=== PATIENT | female | born 1935 | race Caucasian/White ===

== ENCOUNTER 2016-09-11 11:39 | Outpatient (CLI) | payer MEDICARE, OTHER ==
--- NOTE | 2016-09-11 14:20 | XRAY Report ---
THREE-VIEW LUMBAR SPINE: 09/11/2016 CLINICAL INDICATION: Pain. FINDINGS: AP, lateral, coned-down views of the lumbar spine demonstrate extensive degenerative disk disease, with disk space narrowing worst at L2-3. There is no evidence of fracture. The bowel gas p attern appears unremarkable. IMPRESSION: EXTENSIVE DEGENERATIVE DISK DISEASE. NO EVIDENCE OF COMPRESSION FRACTURE. JOB #: [id number] EXT JOB #:[id number]
--- NOTE | 2016-09-11 14:20 | XRAY Report ---
TWO VIEW BILATERAL HIPS AND PELVIS: 09/11/2016 CLINICAL INDICATION: Pain. FINDINGS: Frontal view of the hips and pelvis and bilateral frogleg lateral views of the hips demons trate mild bilateral hip osteoarthritis. There is no evidence of acute fracture or dislocation. The s acroiliac joints appear unremarkable. IMPRESSION: MILD BILATERAL HIP OSTEOARTHRITIS. JOB #: [id number] EXT JOB #:[id number]
== END 2016-09-11 11:40 | disposition home or self-care (01) ==
LOC: DI 11:39
PROVIDERS: ATTEND Physician Assistant
DX: M16.0 Bilateral primary osteoarthritis of hip (principal); M51.36 Other intervertebral disc degeneration, lumbar region
CPT/HCPCS: 72100; 73521

== ENCOUNTER 2016-09-25 13:12 | Outpatient (CLI) | payer MEDICARE, OTHER ==
--- NOTE | 2016-09-26 09:03 | DEXA Report ---
DEXA SCAN: 09/25/2016 CLINICAL INDICATION: Postmenopausal. TECHNIQUE: Dual energy x-ray absorptiometry (DXA) was performed on a [employer] system. Regions measured are the AP spine, femoral neck, and, if needed, forearm. COMPARISON: 09/12/2015. In accordance with the International Society for Clinical Densitometry (ISCD) guidelines, data from previous exams may be reanalyzed using current recommendations and techniques. This is done to allow a more accurate basis for comparison with the current study. FINDINGS: The data for the lumbar spine is as follows: REGION BMD (g/cm/cm) T-SCORE Z-SCORE L1 0.920 -1.7 0.2 L2 1.317 1.0 2.9 L3 1.402 1.7 3.6 L4 1.128 -0.6 1.4 TOTAL 1.185 0.0 2.0 NOTE: All evaluable vertebrae are used for classification. The data for the hip is as follows: REGION BMD (g/cm/cm) T-SCORE Z-SCORE Neck 0.743 -2.1 0.1 TOTAL 0.763 -1.9 0.1 NOTE: The femoral neck or total proximal femur, whichever is lowest, is used for classification. DXA RESULTS SUMMARY: Spine SCAN DATE AGE BMD T-SCORE BMD CHANGE VS BASELINE BMD CHANGE VS PREVIOUS 09/25/2016 81 1[age]185 --- -0.006 -0.5 09/12/2015 80 1.191 --- --- --- * Denotes significant change at the 95% confidence level. Denotes dissimilar scan types or analysis methods. DXA RESULTS SUMMARY: Total hip SCAN DATE AGE BMD T-SCORE BMD CHANGE VS BASELINE BMD CHANGE VS PREVIOUS 09/25/2016 81 0.763 --- 0.021 2.8 09/12/2015 80 0.742 --- --- --- * Denotes significant change at the 95% confidence level. Denotes dissimilar scan types or analysis methods. IMPRESSION: 1. THE WHO CLASSIFICATION BASED ON THE INTERNATIONAL REFERENCE STANDARD IS OSTEOPENIA. THE FRACTURE RISK IS INCREASED. 2. THERE HAS BEEN NO STATISTICALLY SIGNIFICANT INTERVAL CHANGE IN BONE MINERAL DENSITY OF THE LEFT HIP TOTAL OR LUMBAR SPINE FROM 09/12/2015. RECOMMENDATION: Patients with diagnosis of osteoporosis or osteopenia should have regular bone mineral density assessment. For those eligible for Medicare, routine testing is allowed once every 2 years. Testing frequency can be increased for patients who have rapidly progressing disease or for those who are receiving medical therapy to restore bone mass. COMMENT: World Health Organization (WHO) definitions for osteoporosis and osteopenia: NORMAL BMD: T-score at -1.0 or higher, fracture risk is low. OSTEOPENIA BMD: T-score between -1.0 and -2.5, fracture risk is increased. OSTEOPOROSIS BMD: T-score at -2.5 or lower, fracture risk high. National Osteoporosis Foundation recommends: 1. Obtain adequate dietary calcium (at least 1200 mg per day) and vitamin D (400 -800 international units per day). 2. Participate, as appropriate, in regular weightbearing and muscle- strengthening exercise. 3. Avoid tobacco use and reduce alcohol and caffeine intake. 4. For more detailed information see the website at www.NOF.org. MTDD
== END 2016-09-25 13:13 | disposition home or self-care (01) ==
LOC: DI 13:12
PROVIDERS: ATTEND Physician Assistant
DX: Z13.820 Encounter for screening for osteoporosis (principal); M81.0 Age-related osteoporosis without current pathological fracture
CPT/HCPCS: 77080

== ENCOUNTER 2018-01-12 11:46 | Outpatient (CLI) | payer MEDICARE, OTHER ==
[2018-01-12] MEDS ORDERED: IOVERSOL 320 100 ML VIAL IVP ONE ×2 (11:55→12:23)
--- NOTE | 2018-01-13 17:19 | CT Report ---
Reason: LOCALIZED ENLARGED LYMPH NODES Procedure Date: 01/12/2018 Accession Number: [id number] / [id number] Procedure: CT - Neck Soft Tissue W/ CPT Code: FULL RESULT: CT SOFT TISSUE NECK WITH CONTRAST EXAM DATE: 01/12/2018. INDICATION: 82-year-old female. Localized enlarged lymph nodes, submandibular. TECHNIQUE: 80 cc of Isovue 370 contrast were injected intravenously. The neck was scanned helically and data was reconstructed into 2 mm axial images. In addition, sagittal and coronal reformations have been generated. In accordance with CT protocol optimization, one or more of the following dose reduction techniques were utilized for this exam: automated exposure control, adjustment of mA and/or KV based on patient size, or use of iterative reconstructive technique. COMPARISON: None. FINDINGS: No obvious radiopaque marker is identified, localizing the area of clinical concern. The submandibular glands have a normal appearance. No mass lesion is identified in either submandibular gland. In addition, there is no evidence of active sialadenitis. No radiopaque calculi are seen within either gland or in the duct for either gland. A few very small, benign-appearing lymph nodes are seen in both submandibular spaces. No pathologically enlarged lymph nodes are demonstrated and no abnormal cystic or solid mass lesion is seen. The parotid glands are partially obscured due to beam-hardening artifact from metal dental hardware. Grossly no pathology is demonstrated. The nasopharyngeal and oropharyngeal soft tissue contours appear symmetric. The oral tongue is obscured due to fairly extensive beam-hardening artifact from metal dental hardware. No tongue base mass is demonstrated. The larynx and hypopharynx are unremarkable. The imaged trachea appears widely patent. No thyromegaly. A few tiny hypodensities are seen in the right lobe of the thyroid, almost certainly representing benign change (i.e., small adenomas or colloid cysts). No dominant thyroid mass lesion is demonstrated. The carotid and vertebral arteries appear patent. Both internal jugular veins are patent. No lymph nodes meeting the size criterion for malignancy are identified in the neck and no necrotic lymph nodes are seen. The largest lymph node is in the left level IIA robbin station (image 77 of series #3). It has a normal reniform configuration and it measures about 1 x 0.[address] images. This is well within normal limits for a jugulodigastric lymph node. No focal mass/nodule is identified in the imaged upper lungs. There is relatively symmetric scarring at the pulmonary apices bilaterally. Degenerative changes are demonstrated in the cervical spine. Regional bony structures are otherwise unremarkable. No lytic or destructive bone lesion is identified. Middle ear cavities and mastoid air cells appear clear. The paranasal sinuses appear clear. No mass is identified in either orbit. No obvious acute pathology is seen in the imaged brain. IMPRESSION: Unremarkable soft tissue neck CT. In particular, no pathologic lymphadenopathy is demonstrated.
== END 2018-01-12 11:47 | disposition home or self-care (01) ==
LOC: DI 11:46
PROVIDERS: ATTEND Physician Assistant
DX: R59.0 Localized enlarged lymph nodes (principal)
CPT/HCPCS: 70491; Q9967

== ENCOUNTER 2019-04-08 07:59 | Outpatient (CLI) | payer MEDICARE, OTHER ==
--- NOTE | 2019-04-08 09:16 | Ultrasound Report ---
Reason: RUQ PAIN Procedure Date: 04/08/2019 Accession Number: [id number] / [id number] Procedure: US - Abdomen Limited CPT Code: Final Report FULL RESULT: EXAM: ABDOMEN ULTRASOUND LIMITED, RUQ EXAM DATE: 04/08/2019 08:32 AM. CLINICAL HISTORY: Right upper quadrant pain. COMPARISON: None. TECHNIQUE: Real-time scanning was performed with static images obtained. FINDINGS: Liver: Echotexture is mildly coarsened with increased parenchymal echogenicity and subtle nodularity of surface contour suggested on curved probe. Linear transducer for focused evaluation of liver surface was not utilized. Liver spans at least 13.4 cm. Increased echogenicity of parenchymal limits evaluation for hepatic masses, no mass is seen. Main portal vein flow: Hepatopetal. Gallbladder: Normal. No stones, wall thickening, or sonographic Mesa's sign. Biliary System: CBD measures 2 mm. No intrahepatic or extrahepatic ductal dilatation. Other: Limited visualization of the right kidney demonstrates no hydronephrosis or calculi, maximal sagittal dimension 9.8 cm. IMPRESSION: Increased parenchymal echogenicity of the liver which can be seen with disease such as steatosis. Question surface nodularity of liver, can be seen with cirrhosis. RADIA
== END 2019-04-08 08:00 | disposition home or self-care (01) ==
LOC: DI 07:59
PROVIDERS: ATTEND Physician Assistant
DX: R10.11 Right upper quadrant pain (principal)
CPT/HCPCS: 76705

== ENCOUNTER 2020-05-16 14:46 | Outpatient (CLI) | payer MEDICARE, OTHER ==
--- NOTE | 2020-05-17 12:06 | Mammography Report ---
BILATERAL DIGITAL SCREENING MAMMOGRAM 3D/2D WITH EXAGGERATED CC: 05/16/2020 CLINICAL: Family history of breast cancer. Comparison is made to exams dated: 08/23/2015 mammogram, 07/25/2014 mammogram, 09/04/2012 mammogram, 2011 mammogram, and 03/07/2010 mammogram - [facility]. The tissue of both breasts i s predominantly fatty. No significant masses, calcifications, or other findings are seen in either breast. There has been no significant interval change. IMPRESSION: NEGATIVE There is no mammographic evidence of malignancy. A 1 year screening mammogram is recommended. This exam was interpreted at Station ID: [id number]. NOTE: For mammograms, a report in lay terms will be sent to the patient. Approximately 15% of breast malignancies will not be visualized mammographically. In the management of a palpable breast mass, a negative mammogram must not discourage biopsy of a clinically suspicious lesion. Electronically Signed By: Vignesh Rosario acr/penrad:05/16/2020 16:10:43 ACR BI-RADS Category 1: Negative 3341F PARENCHYMAL PATTERN: (F) - The breast(s) demonstrate(s) diffuse fatty replacement. BI-RADS CATEGORY: (1) - 1 RECOMMENDATION: (ANNUAL) - Recommend routine annual screening mammography. [id number] 1 year screening LATERALITY: (B)
== END 2020-05-16 14:47 | disposition home or self-care (01) ==
LOC: DI.S 14:46
PROVIDERS: ATTEND Physician Assistant
DX: Z12.31 Encounter for screening mammogram for malignant neoplasm of breast (principal)

== ENCOUNTER 2020-10-03 10:13 | Outpatient (CLI) | payer MEDICARE, OTHER ==
[2020-10-03 11:05] LABS: BASOPHILS % (AUTO) 0.7 %; EOSINOPHILS # (AUTO) 0.1 10^3/uL (0.0-0.7); EOSINOPHILS % (AUTO) 1.8 %; HGB - HEMOGLOBIN 14.8 g/dL (12.0-16.0); LYMPHOCYTES # (AUTO) 1.2 10^3/uL (1.5-3.5); LYMPHOCYTES % (AUTO) 21.4 %; MEAN CORPUSCULAR HEMOGLOBIN 31.8 pg (27.0-31.0); MEAN CORPUSCULAR HGB CONC 34.4 g/dL (32.0-36.0); MEAN CORPUSCULAR VOLUME 92.3 fL (81.0-99.0); MEAN PLATELET VOLUME 9.4 fL (7.9-10.8); MONOCYTES # (AUTO) 0.5 10^3/uL (0.0-1.0); MONOCYTES % (AUTO) 9.5 %; NEUTROPHILS # (AUTO) 3.6 10^3/uL (1.5-6.6); NEUTROPHILS % (AUTO) 66.4 %; PLT - PLATELET COUNT 249 10^3/uL (130-450); RED BLOOD COUNT 4.66 10^6/uL (4.20-5.40); RED CELL DISTRIBUTION WIDTH 11.6 % (12.0-15.0); WHITE BLOOD COUNT 5.5 x10^3/uL (4.8-10.8)
[2020-10-03 11:22] LABS: ALBUMIN 4.4 g/dL (3.2-5.5); ALBUMIN/GLOBULIN RATIO 1.8 (1.0-2.2); BILIRUBIN,TOTAL 0.9 mg/dL (0.2-1.0); CALCIUM 9.5 mg/dL (8.5-10.3); TOTAL PROTEIN 6.9 g/dL (6.7-8.2)
== END 2020-10-03 10:14 | disposition home or self-care (01) ==
LOC: RT 10:13
PROVIDERS: ATTEND Nurse Practitioner Family
DX: R00.2 Palpitations (principal); R42 Dizziness and giddiness
CPT/HCPCS: 36415; 80053; 84443; 85025; 93005

== ENCOUNTER 2020-10-19 11:59 | Emergency (ER) | payer MEDICARE, OTHER | END 2020-10-19 12:10 | disposition left against medical advice (07) | LOC: ED 11:59 | DX: Z53.21 Procedure and treatment not carried out due to patient leaving prior to being seen by health care provider (principal) ==

== ENCOUNTER 2020-11-01 13:44 | Emergency (ER) | payer MEDICARE, OTHER ==
[2020-11-01 14:13] LABS: BASOPHILS % (AUTO) 0.6 %; EOSINOPHILS # (AUTO) 0.1 10^3/uL (0.0-0.7); EOSINOPHILS % (AUTO) 1.4 %; HCT - HEMATOCRIT 45.9 % (37.0-47.0); HGB - HEMOGLOBIN 15.7 g/dL (12.0-16.0); LYMPHOCYTES # (AUTO) 1.5 10^3/uL (1.5-3.5); LYMPHOCYTES % (AUTO) 22.3 %; MEAN CORPUSCULAR HEMOGLOBIN 31.2 pg (27.0-31.0); MEAN CORPUSCULAR HGB CONC 34.2 g/dL (32.0-36.0); MEAN CORPUSCULAR VOLUME 91.1 fL (81.0-99.0); MEAN PLATELET VOLUME 9.2 fL (7.9-10.8); MONOCYTES # (AUTO) 0.5 10^3/uL (0.0-1.0); MONOCYTES % (AUTO) 6.9 %; NEUTROPHILS # (AUTO) 4.5 10^3/uL (1.5-6.6); NEUTROPHILS % (AUTO) 68.6 %; PLT - PLATELET COUNT 299 10^3/uL (130-450); RED BLOOD COUNT 5.04 10^6/uL (4.20-5.40); RED CELL DISTRIBUTION WIDTH 11.5 % (12.0-15.0); WHITE BLOOD COUNT 6.5 x10^3/uL (4.8-10.8)
[2020-11-01 14:29] LABS: ALBUMIN 4.4 g/dL (3.2-5.5); BILIRUBIN,TOTAL 0.8 mg/dL (0.2-1.0); CALCIUM 9.7 mg/dL (8.5-10.3); POTASSIUM 3.9 mmol/L (3.5-5.0); TOTAL PROTEIN 7.5 g/dL (6.7-8.2)
[2020-11-01 14:30] LABS: ALBUMIN/GLOBULIN RATIO 1.4 (1.0-2.2)
--- NOTE | 2020-11-01 14:39 | XRAY Report ---
PROCEDURE: Chest 1 View X-Ray INDICATIONS: Chest Pain TECHNIQUE: One view of the chest was acquired. COMPARISON: None. FINDINGS: Surgical changes and devices: None. Lungs and pleura: No pleural effusions or pneumothorax. Lungs are clear. Mediastinum: Mediastinal contours appear normal. Heart size is normal. Bones and chest wall: No suspicious bony lesions. Overlying soft tissues appear unremarkable. IMPRESSION: No acute cardiopulmonary abnormality. Reviewed by: Shakeel Cruz MD on 11/01/2020 2:38 PM PDT Approved by: Shakeel Cruz MD on 11/01/2020 2:38 PM PDT Station ID: [id number]
--- NOTE | 2020-11-01 17:05 | ED Physician Documentation ---
PD HPI CHEST PAIN - Stated complaint Stated Complaint: CHEST TIGHTNESS - Chief complaint Chief Complaint: Cardiac - History obtained from History obtained from: Patient - History of Present Illness Timing - duration: Weeks Timing - details: Gradual onset Pain level max: 0 Pain level now: 0 Quality: No: Pressure, Tightness, Aching, Sharp, Tearing, Dull, Stabbing, Throbbing, Indigestion, Like prior ACS, Pain Radiation: No: Jaw, Neck, Back, Abdominal, Left upper extremity, Right upper extremity - Additional information Additional information: 85-year-old female presents to the emergency department complaint of intermittent palpitations for the past several weeks, worse today. She states she started new blood pressure medication but does not know what it is. Nothing seems to make it better or worse. No lightheadedness, dizziness, chest pain or near syncope. Review of Systems Constitutional: denies: Fever, Chills Ears: denies: Ear pain Nose: denies: Rhinorrhea / runny nose, Congestion Throat: denies: Sore throat Cardiac: reports: Palpitations. denies: Chest pain / pressure Respiratory: denies: Cough GI: denies: Nausea, Vomiting, Diarrhea Skin: denies: Rash PD PAST MEDICAL HISTORY - Past Medical History Past Medical History: Yes - Past Surgical History Past Surgical History: No - Present Medications Home Medications: Ambulatory Orders Medication Instructions Recorded Confirmed Terbinafine [Lamisil] 250 mg PO DAILY #14 tablet 07/31/19 cephALEXin [Keflex] 500 mg PO Q6H #28 capsule 07/31/19 - Allergies Allergies/Adverse Reactions: Allergies Allergy/AdvReac Type Severity Reaction Status Date / Time No Known Drug Allergies Allergy Verified 11/01/20 13:58 - Social History Does the pt smoke?: No Smoking Status: Never smoker Does the pt drink ETOH?: No Does the pt have substance abuse?: No - Immunizations Immunizations are current?: No - POLST Patient has POLST: No PD ED PE NORMAL - Vitals Vital signs reviewed: Yes - General General: Alert and oriented X 3, No acute distress, Well developed/nourished - HEENT HEENT: PERRL, Moist mucous membranes - Neck Neck: Supple, no meningeal sign - Cardiac Cardiac: Other (irregular) - Respiratory Respiratory: No respiratory distress, Clear bilaterally - Abdomen Abdomen: Soft, Non tender, Non distended - Derm Derm: Warm and dry - Extremities Extremities: No edema, No calf tenderness / cord - Neuro Neuro: Alert and oriented X 3 - Psych Psych: Normal mood, Normal affect Results - Vitals Vitals: Vital Signs - 24 hr 11/01/20 11/01/20 13:50 17:31 Temperature 36.5 C Heart Rate 70 63 Respiratory 18 15 Rate Blood Pressure 200/98 H 160/78 H O2 Saturation 97 96 Oxygen O2 Source Room air - EKG (time done) 1351 Rate: Rate (enter#) (66) Rhythm: NSR, Other (PVC) [place]: LAD Intervals: Normal MA QRS: Normal Ischemia: Normal ST segments - Labs Labs: Laboratory Tests 11/01/20 11/01/20 11/01/20 14:08 14:08 14:08 WBC 6.5 RBC 5.04 Hgb 15.7 Hct 45.9 MCV 91.1 MCH 31.2 H MCHC 34.2 RDW 11.5 L Plt Count 299 MPV 9.2 Neut # (Auto) 4.5 Lymph # (Auto) 1.5 [place] # (Auto) 0.5 Eos # (Auto) 0.1 Baso # (Auto) 0.0 Absolute Nucleated RBC 0.00 Nucleated RBC % 0.0 Sodium 136 Potassium 3.9 Chloride 96 L Carbon Dioxide 29 Anion Gap 11.0 BUN 18 Creatinine 1.0 Estimated GFR (MDRD) 53 L Glucose 131 H Calcium 9.7 Total Bilirubin 0.8 AST 26 ALT 22 Alkaline Phosphatase 74 Troponin I High Sens 6.2 Total Protein 7.5 Albumin 4.4 Globulin 3.1 Albumin/Globulin Ratio 1.4 Lipase 37 - Rads (name of study) cxr Radiology: Final report received, EMP read contemporaneously, See rad report (No acute abnormality) PD MEDICAL DECISION MAKING - ED course Complexity details: reviewed results, re-evaluated patient, considered differential, d/w patient ED course: Patient is an 85-year-old female who presents to the emergency department palpitations. She is found to have multiple PVCs and occasional bigeminy. We will have her continue her current medications at home and follow-up with her doctor. No acute laboratory findings, chest x-ray or EKG findings other than the bigeminy. Patient counseled regarding signs and symptoms for which I believe and urgent re-evaluation would be necessary. Patient with good understanding of and agreement to plan and is comfortable going home at this time This document was made in part using voice recognition software. While efforts are made to proofread this document, sound alike and grammatical errors may occur. Departure - Departure Disposition: 01 Home, Self Care Clinical Impression: Premature ventricular contraction Condition: Good Instructions: Premature Ventricular Contract About Follow-Up: your,doctor in 1 week [Other] Comments: You are having frequent PVCs. Please continue your current medications and follow-up with your clinical nutritionist for further care. Return if you worsen. There are no other acute laboratory or radiographic image findings that are abnormal today. Return if you worsen. Discharge Date/Time: 11/01/20 17:32
[2020-11-01 17:32] VITALS: BP 160/78
== END 2020-11-01 17:32 | disposition home or self-care (01) ==
LOC: ED 13:44
DX: I49.3 Ventricular premature depolarization (principal)
CPT/HCPCS: 36415; 80053; 83690; 84484; 85025; 93005; 99284

== ENCOUNTER 2020-11-27 13:55 | Emergency (ER) | payer MEDICARE, OTHER ==
[2020-11-27 14:06] VITALS: BP 161/90
--- NOTE | 2020-11-27 15:45 | ED Physician Documentation ---
PD HPI SKIN - Stated complaint Stated Complaint: PERINEAL CELLULITIS - Chief complaint Chief Complaint: Wound - History obtained from History obtained from: Patient - Additional information Additional information: 88yo female with dx cellulitis to inner thighs 11/17. Was on bactrim for it. Itchy but not painful. Tried epsom salt and hydrocortisone cream which were helpful. No vaginal drainage. new fabric softener and jeans. Review of Systems Constitutional: denies: Fever, Chills Nose: reports: Reviewed and negative Throat: reports: Reviewed and negative Cardiac: reports: Reviewed and negative PD PAST MEDICAL HISTORY - Past Surgical History Past Surgical History: No - Present Medications Home Medications: Ambulatory Orders Medication Instructions Recorded Confirmed Terbinafine [Lamisil] 250 mg PO DAILY #14 tablet 07/31/19 cephALEXin [Keflex] 500 mg PO Q6H #28 capsule 07/31/19 Nystatin [Nystop] 1 applic TOP BID #3 bottle 11/27/20 - Allergies Allergies/Adverse Reactions: Allergies Allergy/AdvReac Type Severity Reaction Status Date / Time No Known Drug Allergies Allergy Verified 11/27/20 14:06 - Social History Does the pt smoke?: No Smoking Status: Never smoker Does the pt drink ETOH?: No Does the pt have substance abuse?: No - Immunizations Immunizations are current?: No - POLST Patient has POLST: No PD ED PE NORMAL - Vitals Vital signs reviewed: Yes - General General: Alert and oriented X 3, No acute distress - Abdomen Abdomen: Normal bowel sounds, Soft, Non tender - Female Female : Other (Exam done with RN present, Red rash, lateral to labia and on labia itself bilateral) - Neuro Neuro: Alert and oriented X 3, Normal speech Results - Vitals Vitals: Vital Signs - 24 hr 11/27/20 14:02 Temperature 36.5 C Heart Rate 91 Respiratory 16 Rate Blood Pressure 161/90 H O2 Saturation 96 Oxygen O2 Source Room air Departure - Departure Disposition: 01 Home, Self Care Clinical Impression: Candidal dermatitis Condition: Good Record reviewed to determine appropriate education?: Yes Instructions: ED Candidiasis Cutaneous Prescriptions: Nystatin [Nystop] 1 applic TOP BID #3 bottle Comments: Followup with your primary doc in 1 week for recheck. return if worse.
== END 2020-11-27 16:04 | disposition home or self-care (01) ==
LOC: ED 13:55
DX: B37.2 Candidiasis of skin and nail (principal); L30.8 Other specified dermatitis
CPT/HCPCS: 99282; 99283

== ENCOUNTER 2021-10-24 08:14 | Outpatient (CLI) | payer MEDICARE, OTHER ==
--- NOTE | 2021-10-24 10:29 | Mammography Report ---
BILATERAL DIGITAL DIAGNOSTIC MAMMOGRAM 3D/2D: 10/24/2021 CLINICAL: Patient reports sloughing of skin at areola/nipple. Comparison is made to exams dated: 05/16/2020 mammogram, 08/23/2015 mammogram, and 07/25/2014 mammogram - [facility]. Both breasts are heterogeneously dense, which may obscure small masses (category c / 51-75% glandular tissue). No significant masses, calcifications, or other findings are seen in either breast. No left retroare olar mass. IMPRESSION: NEGATIVE There is no mammographic evidence of malignancy. Exam findings were conveyed to the patient. Cord Maker reports minimal skin erythema in the region o f left nipple. Patient reports resolved skin sloughing. Patient is advised to monitor for significant change. Clinical follow-up as needed. A 1 year screening mammogram is recommended. Based on the Tyrer Cuzick model (a risk assessment model) the patients lifetime risk is 0.6% and her 10 year risk is 0.0%. According to the ACR, ACS, and NCCN guidelines, an annual breast MRI exam maribeth g with mammogram is recommended if the patients lifetime risk is 20% or greater. This exam was interpreted at Station ID: [id number]. NOTE: For mammograms, a report in lay terms will be sent to the patient. Approximately 15% of breast malignancies will not be visualized mammographically. In the management of a palpable breast mass, a negative mammogram must not discourage biopsy of a clinically suspicious lesion. Electronically Signed By: Bear Serrano M.D. slc/:10/24/2021 09:03:39 ACR BI-RADS Category 1: Negative 3341F PARENCHYMAL PATTERN: (D) - The breast(s) demonstrate(s) heterogeneously dense fibroglandular parenchy ma. BI-RADS CATEGORY: (1) - 1 RECOMMENDATION: (ANNUAL) - Recommend routine annual screening mammography. [id number] 1 year screening LATERALITY: (B)
== END 2021-10-24 08:15 | disposition home or self-care (01) ==
LOC: DI 08:14
PROVIDERS: ATTEND Physician Assistant
DX: N64.52 Nipple discharge (principal)

== ENCOUNTER 2022-04-19 09:31 | Outpatient (CLI) | payer MEDICARE, OTHER ==
--- NOTE | 2022-04-19 13:14 | CT Report ---
PROCEDURE: CHEST WO INDICATIONS: PULMONARY NODULE TECHNIQUE: Noncontrast 1mm axial images were acquired from the pulmonary apices to the posterior costophrenic an gles. Axial 5 mm soft tissue kernel reconstructions were performed as well as 8 mm axial MIP and cor onal and sagittal 5 mm reformations. For radiation dose reduction, the following was used: automate d exposure control, adjustment of mA and/or kV according to patient size. COMPARISON: Chest radiograph dated 11/01/2020 FINDINGS: Image quality: Excellent. Lungs and pleura: There is a 7 mm pleural-based posterior left lower lobe nodule (177/series 4). Ther e is a 5 mm pleural-based nodule seen in the central left lower lobe abutting the diaphragmatic pleur a (230/series 4). There is a 4 mm right lower lobe nodule (227/series 4). There is a 4 mm pleural-bas ed nodule in the right lower lobe (200/series 4). A few scattered tiny punctate calcified pulmonary g ranulomas. No acute air space opacities. No pleural effusions or pneumothorax. Central and peripher al airways are patent and normal in caliber. Mediastinum: Heart size is normal. Scattered atherosclerotic calcifications of the coronary arteries and thoracic aorta. No pericardial effusion. No mediastinal adenopathy by size criteria. Thoracic aorta and central pulmonary arteries are normal in size. Esophagus is normal in caliber. No hiatal hernia. Bones and chest wall: No suspicious bony lesions. No vertebral body compression fractures. No axil elia or supraclavicular adenopathy by size criteria. The thyroid is normal in size and there are no incidental findings. Abdomen: A 1.3 cm partially exophytic hyperdense lesion in the posterior cortex of the right kidney favored to represent a hyperdense cyst. Other visualized upper abdominal solid organs and bowel loops appear normal in the absence of contrast. IMPRESSION: 1. No acute cardiopulmonary abnormalities. 2. Multiple bilateral pulmonary nodules measuring up to 7 mm in maximum dimension. 3. Atherosclerosis. 4. A 1.3 cm hyperdense lesion within the posterior right kidney favored to represent a hyperdense cys t. Recommend further evaluation with renal ultrasound. LUNG RADS 3 (probably benign): Recommend follow-up CT chest in 6 months to document stability. CLINICAL RECOMMENDATION STATEMENTS: In patients <35 years with an ITN detected on CT, MRI, or extrathyroidal ultrasound, the Committee re commends further evaluation with dedicated thyroid ultrasound if the nodule is "e1 cm and has no susp icious imaging features, and if the patient has normal life expectancy. In patients "e35 years with an ITN detected on CT, MRI, or extrathyroidal ultrasound, the Committee r ecommends further evaluation with dedicated thyroid ultrasound if the nodule is "e1.5 cm and has no s uspicious imaging features, and if the patient has normal life expectancy. (ACR, 2014) Reviewed by: Marcelo Busch MD on 04/19/2022 1:13 PM PST Approved by: Marcelo Busch MD on 04/19/2022 1:13 PM PST Station ID: [id number]
== END 2022-04-19 09:32 | disposition home or self-care (01) ==
LOC: DI 09:31
PROVIDERS: ATTEND Internal Medicine
DX: R91.8 Other nonspecific abnormal finding of lung field (principal); I25.10 Atherosclerotic heart disease of native coronary artery without angina pectoris

== ENCOUNTER 2022-07-05 10:08 | Outpatient (CLI) | payer MEDICARE, OTHER ==
--- NOTE | 2022-07-06 08:53 | XRAY Report ---
PROCEDURE: Lumbar Spine 2 View INDICATIONS: CHRONIC BACK PAIN TECHNIQUE: 2 views of the lumbar spine were acquired. COMPARISON: X-ray lumbar spine, 09/11/2016. FINDINGS: Bones: 5 [id number] vertebrae are present. There is normal bony alignment. No vertebral body compression fractures. No suspicious bony lesions. Degenerative disc disease, [id number] at L1-L2, L2-L3, L3-L4 and L4-L5. Moderate facet arthropathy throughout the lumbar spine. Soft tissues: Overlying bowel gas pattern is normal. Atherosclerotic calcifications. IMPRESSION: 1. Ptvdxvua-[id number] degenerative disc disease. 2. Moderate facet arthropathy. Reviewed by: Betina Cha MD on 07/06/2022 8:51 AM PDT Approved by: Betina Cha MD on 07/06/2022 8:51 AM PDT Station ID: [id number]
== END 2022-07-05 10:09 | disposition home or self-care (01) ==
LOC: DI.S 10:08
PROVIDERS: ATTEND Physician Assistant
DX: M51.36 Other intervertebral disc degeneration, lumbar region (principal); M47.816 Spondylosis without myelopathy or radiculopathy, lumbar region

== ENCOUNTER 2023-01-13 09:42 | Outpatient (CLI) | payer MEDICARE, OTHER ==
--- NOTE | 2023-01-13 12:17 | DEXA Report ---
PROCEDURE: Dexa Spine and/or Hip INDICATIONS: OSTEOPENIA TECHNIQUE: Dual energy x-ray absorptiometry (DXA) was performed on a [employer]. Regions measur ed are the AP Spine, femoral neck, and if needed forearm. COMPARISON: 09/25/2016 FINDINGS: Lumbar Spine: Bone Mineral Density 1.346 g/cm/cm,T score 1.4. There is interval 13.6% increase in total lumbar spi ne bone density. Left Femoral Neck: Bone Mineral Density 0.723 g/cm/cm, T score -2.3. Left Hip: Bone Mineral Density 0.767 g/cm/cm,T score -1.9. There is interval 0.5% increase in left total hip ron ne density. (T score greater or equal to -1.0: NORMAL) (T score from -1.1 to -2.4: OSTEOPENIA) (T score less than or equal to -2.5 to: OSTEOPOROSIS) Impression: By WHO criteria, this patient has low bone density (osteopenia). Patients with diagnosis of osteoporosis or osteopenia should have regular bone mineral density assess ment. For those eligible for Medicare, routine testing is allowed once every 2 years. Testing frequ ency can be increased for patients who have rapidly progressing disease or for those who are receivin g medical therapy to restore bone mass. Reviewed by: Jose Jara MD on 01/13/2023 12:16 PM PST Approved by: Jose Jara MD on 01/13/2023 12:16 PM PST Station ID: [id number]
== END 2023-01-13 09:43 | disposition home or self-care (01) ==
LOC: DI 09:42
PROVIDERS: ATTEND Physician Assistant
DX: M85.88 Other specified disorders of bone density and structure, other site (principal)

== ENCOUNTER 2023-10-28 08:00 | Outpatient (CLI) | payer MEDICARE, OTHER | END 2023-10-28 08:01 | disposition home or self-care (01) | LOC: LAB 08:00 | PROVIDERS: ATTEND Urology | DX: R33.9 Retention of urine, unspecified (principal) | CPT/HCPCS: 87086 ==